=== PATIENT | male | born 1975 | race Caucasian/White ===

== ENCOUNTER 2023-04-04 21:40 | Emergency (ER) | payer MEDICARE, MEDICAID ==
[2023-04-04] MEDS ORDERED: Glucagon,Human Recombinant 1 MG Vial IM PRN (21:54)
[2023-04-04] MEDS ORDERED: 50% Dextrose in Water 50 ML Syringe IVPUSH PRN (21:54)
[2023-04-04] MEDS: Insulin Regular, Human 100 Units/ML 3 ML Vial SUBCUT STA (22:00)
== END 2023-04-04 22:40 | disposition home or self-care (01) ==
LOC: VM.ED 21:40
DX: E10.65 Type 1 diabetes mellitus with hyperglycemia (principal); I12.9 Hypertensive chronic kidney disease with stage 1 through stage 4 chronic kidney disease, or unspecified chronic kidney disease; N18.9 Chronic kidney disease, unspecified; E10.40 Type 1 diabetes mellitus with diabetic neuropathy, unspecified; Z87.891 Personal history of nicotine dependence
CPT/HCPCS: 82947; 99284; J1815-GY